=== PATIENT | female | born 1975 | race Two or more races ===

== ENCOUNTER 2025-07-23 09:38 | Emergency (ER) | payer OTHER ==
[~2025-07-23] VITALS: Ht 160 cm; Wt 136.1 kg
[2025-07-23] MEDS ORDERED: GLIMEPIRIDE4 MG (09:52)
[2025-07-23] MEDS ORDERED: BISOPROLOL FUM2.5 MG PO (09:52)
[2025-07-23] MEDS ORDERED: SYNTHROID200 MCG PO (09:52)
[2025-07-23] MEDS ORDERED: METHYLPREDNISOLONE SOD SUCC 125 MG VIAL IV ONE (10:15)
[2025-07-23] MEDS ORDERED: MAGNESIUM SULFATE IN WATER 2 GM/50 ML PIGGYBAG IV ONE (10:15)
[2025-07-23] MEDS ORDERED: BENZONATATE 200 MG CAPSULE PO ONE (10:15)
[2025-07-23] MEDS ORDERED: LEVALBUTEROL HCL 1.25 MG/3 ML SOLUTION IH SCH (10:15)
[2025-07-23] MEDS ORDERED: IPRATROPIUM BROMIDE 0.5 MG/2.5 ML AMPUL.NEB IH SCH (10:15)
[2025-07-23 10:51] LABS: BASO % 0.6 % (0.1-1.2); EOS # 0.12 (0.04-0.54); EOS % 1.0 % (0.7-7.0); LYMPH # 1.89 (1.18-3.74); LYMPH % 15.3 % (19.3-53.1); MEAN PLATELET VOLUME 10.70 fl (9.4-12.4); MONO # 0.96 (0.24-0.82); MONO % 7.8 % (4.7-12.5); NEUT # 9.26 (1.56-6.13); NEUT % 74.9 % (34.0-71.1); RED CELL DISTRIBUTION WIDTH 13.1 % (11.6-14.4)
[2025-07-23 11:19] LABS: COVID-19 AG NEGATIVE (NEGATIVE)
[2025-07-23] MEDS ORDERED: PEPCID AC20 MG PO (12:19)
[2025-07-23] MEDS ORDERED: AMOX1TAB5 PO (12:19)
[2025-07-23] MEDS ORDERED: BENZONATATE200 M1 PO (12:19)
[2025-07-23] MEDS ORDERED: LEVALBUTER0.63 MG/3 IH (12:19)
[2025-07-23] MEDS ORDERED: MEDROLPACK PO (12:19)
== END 2025-07-23 12:56 | disposition home or self-care (01) ==
LOC: ER 09:38
PROVIDERS: General Practice
DX: J45.909 Unspecified asthma, uncomplicated (principal); Z20.822 Contact with and (suspected) exposure to COVID-19; E11.9 Type 2 diabetes mellitus without complications; Z79.84 Long term (current) use of oral hypoglycemic drugs; I10 Essential (primary) hypertension; E03.9 Hypothyroidism, unspecified